=== PATIENT | female | born 1950 | race Caucasian/White ===

== ENCOUNTER 2024-09-06 05:47 | Observation (INO) ==
[~2024-09-06 05:47] MED LIST: Metoclopramide 5 MG/ML VIAL (10 mg) IV PRN; NS 0.45% 1000 ml BAG 1,000 ML IV SCH; Naloxone 0.4 mg VIAL 0.4 mg/ml 1 ml VIAL IV PRN; Ondansetron 4 mg VIAL 2 MG/ML 2 ml VIAL IV PRN; fentaNYL 100 mcg/2 ml 50 MCG/ML VIAL IV PRN
[2024-09-06] MEDS ORDERED: Ropivacaine 5 MG/ML 20 ML VIAL 0.5% (100 MG) ONE (06:12)
[2024-09-06] MEDS ORDERED: ceFAZolin 1 GM in Dextrose 2 GM/100 ML BAG ONE (06:20)
[2024-09-06] MEDS ORDERED: Tranexamic Acid 1 GM/100ML BAG 2,000 MG/200 ML BAG IV ONE (06:21)
[2024-09-06 06:35] LABS: Rapid COVID-19 Molecular Undetected (Undetected)
[2024-09-06] MEDS: Lactated Ringers 1000 ml BAG 1,000 ML IV SCH ×2 (06:51→11:49)
[2024-09-06] MEDS ORDERED: Propofol 0 MG/0 ML BTL ONE (06:59)
[2024-09-06] MEDS ORDERED: Lidocaine 2% PF 5 ML VIAL ONE (06:59)
[2024-09-06] MEDS ORDERED: fentaNYL 100 mcg/2 ml 50 MCG/ML VIAL ONE (06:59)
[2024-09-06] MEDS ORDERED: Phenylephrine IV 10 MG/ML 1 ml VIAL ONE (06:59)
[2024-09-06] MEDS ORDERED: Midazolam 2 mg/2 ml VIAL 1 mg/ml 2 ml VIAL (2 mg) ONE (06:59)
[2024-09-06] MEDS ORDERED: Rocuronium 50 mg VIAL 10 mg/ml 5 ml VIAL (50 mg) ONE (07:31)
[2024-09-06] MEDS ORDERED: Propofol 10 MG/ML 20 ML BTL ONE (07:32)
[2024-09-06] MEDS ORDERED: Dexmedetomidine 200 mcg/2 ml 2 ml VIAL (200 mcg) ONE (07:32)
[2024-09-06] MEDS ORDERED: KETAMINE HCL 10 MG/ML 20 ml VIAL (200 MG) ONE (08:17)
[2024-09-06] MEDS ORDERED: HYDROmorphone 0.5 MG/0.5 ML SYRINGE ONE ×2 (08:17→08:29)
[2024-09-06] MEDS ORDERED: fentaNYL 250 mcg/5 ml 50 MCG/ML 5 ml VIAL (250 MCG) ONE (08:29)
[2024-09-06] MEDS ORDERED: Dexamethasone IV 4 MG/ML VIAL 1 ml VIAL ONE (08:30)
[2024-09-06] MEDS ORDERED: Ondansetron 4 mg VIAL 2 MG/ML 2 ml VIAL ONE (08:30)
[2024-09-06] MEDS ORDERED: Calcium Carb (TUMS) 500 mg CHEW TAB PO PRN (09:13)
[2024-09-06] MEDS ORDERED: Lactulose 30 ml UDC PO PRN (09:13)
[2024-09-06] MEDS ORDERED: Ondansetron ODT 4 mg TAB 4 MG TAB PO PRN (09:13)
[2024-09-06] MEDS ORDERED: Magnesium Hydroxide LIQ 30 ML UDC PO PRN (09:13)
[2024-09-06] MEDS ORDERED: Morphine 2 MG/ML SYRINGE IV PRN (09:13)
[2024-09-06] MEDS: Acetaminophen IV 1 GM/100ML 1,000 MG/100 ML BAG IV ONE (10:44)
[2024-09-06] MEDS: Scopolamine 1 mg/72hr PATCH TRANSDERM ONE (10:44)
[2024-09-06] MEDS: Buffered Lidocaine 1% SYRIN 1 ml INTRADERM ONE (10:44)
[2024-09-06] MEDS: Ondansetron 4 mg VIAL 2 MG/ML 2 ml VIAL IV PRN (12:44)
[2024-09-06] MEDS ORDERED: Dextrose 50% Syringe 50 ml 25 GM/50 ML SYRINGE IV PUSH PRN (14:32)
[2024-09-06] MEDS: ceFAZolin 2 GM PREMIX 2 GM/50 ML BAG IV SCH (16:27)
[2024-09-06] MEDS: Magnesium Hydroxide LIQ 30 ML UDC PO SCH (22:36)
[2024-09-06] MEDS: Latanoprost 0.005% 2.5 ml BTL BOTH EYES SCH (22:37)
[2024-09-07 07:03] LABS: Calcium 8.7 mg/dL (8.6-10.3); Creatinine, Serum 0.88 mg/dL (0.51-0.95); Potassium 4.1 mmol/L (3.5-5.0); eGFR CKD-EPI 69.8 (>60)
[2024-09-07 07:13] LABS: Hematocrit 22.3 % (35-45); Hemoglobin 8.3 g/dL (11.5-14.3); Platelet Count 410 10^3/uL (150-450)
[2024-09-07] MEDS: Vitamin THERAPEUTIC TAB PO SCH (08:34)
[2024-09-07 10:17] VITALS: BP 113/71
== END 2024-09-07 15:13 | disposition home or self-care (01) ==
LOC: SSU 05:47 → OR 05:47
PROVIDERS: ADMIT Orthopaedic Surgery Adult Reconstructive Orthopaedic Surgery; ATTEND Orthopaedic Surgery Adult Reconstructive Orthopaedic Surgery